=== PATIENT | female | born 1985 | race Caucasian/White ===

== ENCOUNTER → 2018-01-24 | Outpatient (CLI) | payer BC ==
--- NOTE | 2018-01-24 11:51 | MRI ---
MRI right ankle without contrast. Indication: Ankle pain and swelling Technique: Multiplanar, multi sequence imaging of the right ankle without IV contrast administration. Findings: The anterior and posterior inferior tibiofibular ligament are intact. There is attenuation of the anterior talofibular ligament with surrounding edema consistent with acute/subacute tear. The posterior talofibular ligament is thickened suggesting partial-thickness tear/sprain. Calcaneofibular ligament is not identified likely representing tear. The deltoid ligamentous complex demonstrates pa rtial-thickness tear of the deep fibers seen on coronal image 23, the superficial fibers are intact. The spring ligament is normal. Moderate edema is noted within the medial and lateral ankle subcutaneo us tissues. The tibiotalar articulation demonstrates no bone marrow signal abnormality or chondral th inning. The peroneus longus and brevis tendons are intact. The medial ankle tendons demonstrate mild tenosyno vitis of the posterior tibialis tendon without evidence of tear. The anterior ankle tendons are rina l. The Achilles tendon is normal. The plantar fascia is normal in signal. No edema within the intrinsic flexor muscles of the foot. The sinus tarsi is normal. Interosseous and cervical ligaments are intact. No localizing bone marrow sig nal abnormality identified within the calcaneus. The talus and navicular are intact. There is moderat e edema within the anterior portion the cuboid along with the lateral cuneiform with edematous appear ance of the adjacent intermetatarsal ligament for example on image 25 series 501. No definite fractur e identified within the midfoot. Impression: 1.Acute/subacute tear of the anterior talofibular ligament, calcaneofibular ligament and low-grade sp rain of the posterior talofibular ligament. 2. Acute/subacute tear of the deep fibers of the deltoid ligamentous complex. 3. Moderate edema within the cuboid and lateral cuneiform consistent with bone contusions without def inite fracture. Additionally there is edematous appearance of the adjacent intermetatarsal ligament c onsistent with acute/subacute injury and midfoot sprain. 4. Mild tenosynovitis of the posterior tibialis tendon at its insertion. Reported By:
== END | disposition home or self-care (01) | DRG 556 ==
LOC: RAD 08:10
PROVIDERS: ATTEND Internal Medicine
DX: M25.571 Pain in right ankle and joints of right foot (principal); S93.491A Sprain of other ligament of right ankle, initial encounter; X58.XXXA Exposure to other specified factors, initial encounter; S93.421A Sprain of deltoid ligament of right ankle, initial encounter; R60.9 Edema, unspecified; M65.871 Other synovitis and tenosynovitis, right ankle and foot
CPT/HCPCS: 73721